=== PATIENT | female | born 1940 | race Caucasian/White ===

== ENCOUNTER 2016-03-13 12:38 | Emergency (ER) | payer MEDICARE ==
[2016-03-13 12:51] VITALS: TEMP 98.4; BMI 17.4
--- NOTE | 2016-03-13 13:12 | EDPRACDOC ---
- General Information Chief Complaint: Nosebleed Stated Complaint: NOSE BLEED NO BLOOD THINNER Time Seen by Provider: 03/13/16 13:02 Information Source: Patient Mode Of Arrival: Car Home Medications: Home Medications Aspirin [Aura Children's Aspirin] 81 mg PO DAILY 01/18/13 Calcium Carbonate [Caltrate 600] 600 mg PO DAILY 01/18/13 Losartan Potassium [Cozaar] 50 mg PO DAILY 01/18/13 [place]-3 Fatty Acids/Fish Oil [Fish Oil 1,000 mg Softgel] 3 cap PO HS 01/18/13 Pantoprazole Sodium [Protonix] 40 mg PO DAILY 01/18/13 Paroxetine HCl [Paxil] 30 mg PO DAILY 01/18/13 Pravastatin [Pravachol] 80 mg PO HS 01/18/13 Raloxifene HCl [Evista] 60 mg PO HS 01/18/13 Docusate Sodium [Colace] 100 mg PO BID 02/28/14 Finasteride [Proscar] 2.5 mg PO DAILY 02/28/14 Ondansetron HCl [Zofran] 4 mg PO Q8H PRN #30 tab 03/08/14 Oxycodone Immediate Release [Oxy-Ir] 5 mg PO Q6H PRN #40 tab 03/08/14 Allergies/Adverse Reactions: Allergies Allergy/AdvReac Type Severity Reaction Status Date / Time No Known Allergies Allergy Verified 03/13/16 12:51 - History of Present Illness 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 Bleeding resolved spontaneous. Denies trauma, fever, earache, congestion, sore throat, cough, cp, sob. Pt not on blood thinners. Blood Location: Right [place] Context Mechanism: Reports: Spontaneous onset Circumstances: Reports: Unknown Amount: Scant Use of: Reports: None Relevent History of: Reports: None Severity: Reports: Tsp. Bleeding: Reports: Controlled Associated Signs & Symptoms: Reports: None ED Past Medical History - History Reviewed Yes Nurses notes reviewed and agree except as marked - Patient Medical History Cardiac History: Reports: Hypertension Psychological History: Reports: Depression. Denies: Substance Use Disorder Systemic History: Denies: Cancer - Family Medical History Reports: Cancer (Mother/Father). Denies: Hypertension, Diabetes, Stroke, Cardiac Disorders - Social Medical History Smoking Status: Former smoker Social History: Denies: Substance Use Disorder ETOH: None Substance Abuse: None EDM Review of Systems - Review of Systems Constitutional: No Symptoms Reported. negative: Fever, Chills, Weakness, Fatigue, Loss of Appetite Ears: No Symptoms Reported. negative: Pain, Hearing Loss, Drainage, Ear Pulling Throat: No Symptoms Reported. negative: Pain, Swelling Nose: Bleeding Mouth: No Symptoms Reported. negative: Pain, Drooling Respiratory: No Symptoms Reported. negative: Cough, Brassy Cough, Barky Cough, Shortness of Breath, Wheezing, Hemoptysis Integumentary: No Symptoms Reported. negative: Itching, Rash, Bruising, Wound Allergic/Immunologic: No Symptoms Reported. negative: Hives, Itching Hematologic: No Symptoms Reported. negative: Lymphadenopathy, Easy Bruising, Easy Bleeding Psychiatric: No Symptoms Reported. negative: Anxiety, Depression, Hallucinations, Insomnia, Suicidal - Physical Exam Constitutional: Alert (Awake), No apparent distress Oriented to: Time, Person, Place Last recorded Vital Signs: Last Vital Signs Temp 98.4 F 03/13/16 12:49 Pulse 88 03/13/16 12:49 Resp 18 03/13/16 12:49 BP 124/70 03/13/16 12:49 Pulse Ox 97 03/13/16 12:49 Oxygen Pulse Oxygen Saturation 97 O2 Device Oxygen Flow Rate Fraction of Inspired Oxygen ( FIO2) - HEENT Head: Normal ( normocephalic) Eye Exam: Normal (PERRL, EOMI, Sclera white) Oropharynx: Normal (Pharynx:Moist without exudate,Gums-no swelling) Tympanic Membrane: Normal ENT EAC: Normal TMJ: Normal Nose: No Symptoms Reported (septum midline) Neck: Normal (FROM, trachea at midline) - Respiratory/Cardiovascular Respiratory: Normal - CTA (BBS clear to auscultation without adventitious sounds ) Cardiovascular: Normal (RRR without murmur, gallop or rub) - Integumentary Skin: Normal, Warm, Dry Lymphatics: Normal (no adenopathy) - Neurologic Memory Impaired: Normal Motor Function: Normal (Normal tone, Pulses 2+ No cyanosis or edema, FROM) Mood Description: Normal Perception: Normal - Differential Diagnosis Anterior nasal bleed, Posterior nasal bleed Decision Time to Discharge: 13:12 - Departure Disposition: Home Condition: Good Final Diagnosis: Epistaxis Instructions: Nosebleed (ED) Education/Counseling Given To: Patient Education/Counseling Given Regarding: Diagnosis, Treatment, Follow Up Referrals: Jaimie Rosales MD [Primary Care Provider] - One Week Alf Hansen DO [Staff Physician] - One Week Prescriptions: No Action [place]-3 Fatty Acids/Fish Oil [Fish Oil 1,000 mg Softgel] 3 cap PO HS Raloxifene HCl [Evista] 60 mg PO HS Aspirin [Aura Children's Aspirin] 81 mg PO DAILY Pravastatin [Pravachol] 80 mg PO HS Losartan Potassium [Cozaar] 50 mg PO DAILY Paroxetine HCl [Paxil] 30 mg PO DAILY Pantoprazole Sodium [Protonix] 40 mg PO DAILY Calcium Carbonate [Caltrate 600] 600 mg PO DAILY Finasteride [Proscar] 2.5 mg PO DAILY Docusate Sodium [Colace] 100 mg PO BID Oxycodone Immediate Release [Oxy-Ir] 5 mg PO Q6H PRN #40 tab PRN Reason: Pain Ondansetron HCl [Zofran] 4 mg PO Q8H PRN #30 tab PRN Reason: Nausea/Vomiting Additional Instructions: Return for worse or different symptoms. Use humidifier or vaporizer in bedroom at night.
[2016-03-13 13:24] VITALS: BP 129/67; PULSE 82
== END 2016-03-13 13:18 | disposition home or self-care (01) ==
LOC: ED 12:38 → EDMC 13:18
DX: R04.0 Epistaxis (principal)
CPT/HCPCS: 99283